=== PATIENT | female | born 1975 | race Caucasian/White ===

== ENCOUNTER 2017-12-22 07:55 | Day surgery (SDC) | payer OTHER ==
[~2017-12-22] VITALS: Ht 152.4 cm; Wt 143.3 kg
[~2017-12-22 07:55] MED LIST: LEVFLO500; OXYACE5T; OXYACE5T PO; RXOXYACE PO; RXSULTRIDS PO; SULTRIDS PO
== END 2017-12-22 23:38 | disposition home or self-care (01) ==
LOC: ORSCMMR 07:55 → ORD 08:30 → ORSCMMR 09:45
PROVIDERS: Internal Medicine Gastroenterology
PROC: 0DJD8ZZ Inspection of Lower Intestinal Tract, Via Natural or Artificial Opening Endoscopic (ICD-10-PCS; principal; 2017-12-22 08:45)
DX: Z12.11 Encounter for screening for malignant neoplasm of colon (principal); Z80.0 Family history of malignant neoplasm of digestive organs; K64.8 Other hemorrhoids; E78.5 Hyperlipidemia, unspecified; I10 Essential (primary) hypertension; G47.30 Sleep apnea, unspecified; E66.01 Morbid (severe) obesity due to excess calories; Z68.44 Body mass index [BMI] 60.0-69.9, adult
CPT/HCPCS: J7120

== ENCOUNTER → 2019-06-11 | Outpatient (CLI) | payer OTHER ==
[2019-06-12 07:14] LABS: Candida species (DNA Probe) Negative (NEGATIVE); G. vaginalis (DNA Probe) Negative (NEGATIVE); T. vaginalis (DNA Probe) Negative (NEGATIVE)
== END | disposition home or self-care (01) ==
LOC: LAB SHORT 10:00 → LAB 10:00
PROVIDERS: Advanced Practice Midwife
DX: N76.0 Acute vaginitis (principal)
CPT/HCPCS: 87480; 87510; 87660

== ENCOUNTER → 2022-04-05 | Outpatient (CLI) | payer OTHER | LOC: LAB 13:00 → LAB SHORT 13:00 | DX: R30.0 Dysuria (principal) | CPT/HCPCS: 87077; 87086; 87186 ==

== ENCOUNTER 2022-12-02 05:43 | Day surgery (SDC) | payer OTHER ==
[2022-12-02] VITALS (7 sets, daily range): BP systolic 115–145; BP diastolic 45–98
[~2022-12-02] VITALS: Ht 154.9 cm; Wt 137.6 kg
[2022-12-02] MEDS ORDERED: ESCI10 PO (06:41)
--- NOTE | 2022-12-02 08:30 | NUR ---
12/02/22 0830 Viktoriya Lua USED 2- 2.0MM KWIRE ([id number]) USED 1-4.5X50MM PARTIALLY THREADED LOW PROFILE IRBY SCREW, TITANIUM ([id number])
== END 2022-12-02 09:38 | disposition home or self-care (01) ==
LOC: ORSCMMR 05:43 → ORD 07:30 → ORSCMMR 09:38
PROVIDERS: Podiatrist Foot & Ankle Surgery
PROC: 0QSP04Z Reposition Left Metatarsal with Internal Fixation Device, Open Approach (ICD-10-PCS; principal; 2022-12-02 07:30)
DX: S92.355A Nondisplaced fracture of fifth metatarsal bone, left foot, initial encounter for closed fracture (principal); W17.89XA Other fall from one level to another, initial encounter; E66.01 Morbid (severe) obesity due to excess calories; Z68.43 Body mass index [BMI] 50.0-59.9, adult; F32.A Depression, unspecified
CPT/HCPCS: A9270; C1713; J0690; J1100; J2250; J2405; J2704; J2765; J3010; J7120